=== PATIENT | female | born 1990 | race Two or more races ===

== ENCOUNTER 2017-09-27 22:38 | Emergency (ER) | payer OTHER ==
[~2017-09-27] VITALS: Ht 162.6 cm; Wt 49.9 kg
--- NOTE | 2017-09-27 22:51 | NUR ---
URINE OBTAINED SENT TO LAB
[2017-09-27 23:07] LABS: BASOPHILS % (AUTO) 0.5 % (0.0-2.0); EOSINOPHILS % (AUTO) 1.9 % (0.0-6.0); HEMATOCRIT 35 % (33-45); HEMOGLOBIN 12.3 g/dL (11.5-14.8); LYMPHOCYTES # (AUTO) 1.7 /CMM (0.8-4.8); LYMPHOCYTES % (AUTO) 26.3 % (20.0-44.0); MEAN CORPUSCULAR HEMOGLOBIN 35 PG (26.0-33.0); MEAN CORPUSCULAR HGB CONC 35 g/dl (31.0-36.0); MEAN CORPUSCULAR VOLUME 101 fL (82-100); MONOCYTES # (AUTO) 0.5 /CMM (0.1-1.30); MONOCYTES % (AUTO) 7.4 % (2.0-12.0); NEUTROPHILS # (AUTO) 4.1 /CMM (1.8-8.9); NEUTROPHILS % (AUTO) 63.9 % (43.0-81.0); PLATELET COUNT (AUTO) 196 /CMM (150-450); RDW COEFFICIENT OF VARIATION 12.1 (11.5-15.0); RED BLOOD CELL COUNT(AUTO) 3.49 MIL/uL (4.0-5.2); WHITE BLOOD COUNT (AUTO) 6.4 K/uL (4.3-11.0)
[2017-09-27 23:11] LABS: APPEARANCE,URINE SL CLOUDY (CLEAR); BILIRUBIN,URINE NEGATIVE (NEGATIVE); BLOOD, URINE NEGATIVE Ery/uL (NEGATIVE); COLOR,URINE YELLOW (YELLOW); KETONES,URINE NEGATIVE (NEGATIVE); LEUKOCYTE ESTERASE ,URINE NEGATIVE (NEGATIVE); NITRITE, URINE NEGATIVE (NEGATIVE); PH,URINE 5.5 (5.0-8.0); PROTEIN,URINE NEGATIVE (NEGATIVE); UGLUCOSE NEGATIVE (NEGATIVE); UROBILINOGEN,URINE 0.2 EU/dL (0.2)
[2017-09-27 23:58] LABS: ALBUMIN 3.8 g/dL (3.4-5.0); BILIRUBIN,DIRECT 0.1 mg/dL (0.0-0.2); BILIRUBIN,TOTAL 0.2 mg/dL (0.2-1.0); CREATININE 0.7 mg/dL (0.6-1.3); POTASSIUM 3.5 mmol/L (3.5-5.1); SALICYLATE 1.7 mg/dL (2.8-20.0); TOTAL PROTEIN, SERUM 7.6 g/dL (6.4-8.2)
[2017-09-28 00:53] VITALS: BP 105/74
== END 2017-09-28 00:57 | disposition home or self-care (01) ==
LOC: ER 22:40
DX: S61.512A Laceration without foreign body of left wrist, initial encounter (principal); F19.10 Other psychoactive substance abuse, uncomplicated; F12.10 Cannabis abuse, uncomplicated; F90.9 Attention-deficit hyperactivity disorder, unspecified type; X78.0XXA Intentional self-harm by sharp glass, initial encounter; Y93.89 Activity, other specified; Y92.89 Other specified places as the place of occurrence of the external cause; Y99.8 Other external cause status
CPT/HCPCS: 36415; 80048; 80076; 80305; 80329; 81001; 85025; 99284; A4606; A6403; G0480 ×2; Z7610; 81000-TC